=== PATIENT | male | born 1995 | race Caucasian/White ===

== ENCOUNTER 2023-10-23 08:22 | Emergency (ER) | payer SELFPAY ==
[~2023-10-23] VITALS: Ht 185.4 cm; Wt 83.9 kg
[~2023-10-23 08:22] MED LIST: CETI10 PO; MOME.1TC TOP; PENVK250 PO; PREDNISONE; PROM25 PO
[2023-10-23 09:21] VITALS: BP 154/81
[2023-10-23] MEDS ORDERED: Tetracaine HCl/Pf 0.5% Opth Soln 4 ml RIGHTEYE ONE (09:25)
[2023-10-23] MEDS ORDERED: Fluorescein Sod 1MG Opth Strips RIGHTEYE ONE (09:25)
[2023-10-23] MEDS ORDERED: ERYT.5TO RIGHTEYE (10:20)
== END 2023-10-23 10:30 | disposition home or self-care (01) ==
LOC: ER 08:22
DX: T15.01XA Foreign body in cornea, right eye, initial encounter (principal); W44.F9XA Other object of natural or organic material, entering into or through a natural orifice, initial encounter
CPT/HCPCS: 99283; A9270

== ENCOUNTER 2025-02-10 01:46 | Emergency (ER) | payer OTHER ==
[~2025-02-10] VITALS: Ht 185.4 cm; Wt 84.8 kg
[~2025-02-10 01:46] MED LIST changes: +ERYT.5TO RIGHTEYE
[2025-02-10 02:27] LABS: Alanine Aminotransfer (ALT/SGP 29.0 U/L (12-78); Albumin, Blood 4.5 g/dL (3.4-5.0); Albumin/Globulin Ratio 1.3 (0.8-1.8); Anion Gap 8.0 mmol/L (3-11); Aspartate Aminotrans (AST/SGOT 47.0 U/L (12-37); Bilirubin, Total 0.3 mg/dL (0.1-1.0); Blood Urea Nitrogen 11.0 mg/dL (8-24); CO2, Blood 27.0 mmol/L (21-32); Calcium, Blood 9.1 mg/dL (8.5-10.1); Chloride, Blood 109.0 mmol/L (98-108); Creatinine, Blood 0.94 mg/dL (0.60-1.20); Globulin, Blood 3.5 g/dL (2.2-4.0); Glucose, Blood 108.0 mg/dL (70-99); Magnesium, Blood 2.7 mg/dL (1.6-2.4); Potassium, Blood 3.7 mmol/L (3.5-5.5); Sodium, Blood 140.0 mmol/L (136-145); Total Protein, Blood 8.0 g/dL (6.4-8.2)
[2025-02-10 02:29] VITALS: BP 137/94
[2025-02-10 02:30] LABS: Prothrombin Time Results 11.1 Sec (9.7-11.5)
[2025-02-10 02:32] LABS: BASOPHILS ABSOLUTE AUTO 0.07 K/mm3 (0.00-0.23); BASOPHILS PERCENT AUTO 1 % (0-2); EOSINOPHILS ABSOLUTE AUTO 0.19 K/mm3 (0.00-0.68); EOSINOPHILS PERCENT AUTO 2 % (0-6); Hematocrit 43.9 % (37.0-53.0); Hemoglobin 15.1 g/dL (13.5-17.5); IMMATURE GRAN ABSOLUTE AUTO 0.06 K/mm3 (0.00-0.10); IMMATURE GRAN PERCENT AUTO 1 % (0-1); LYMPHOCYTES ABSOLUTE AUTO 2.47 K/mm3 (0.84-5.20); LYMPHOCYTES PERCENT AUTO 31 % (21-46); MONOCYTES ABSOLUTE AUTO 0.68 K/mm3 (0.16-1.47); MONOCYTES PERCENT AUTO 9 % (4-13); Mean Corpuscular HGB Conc 34.4 g/dL (31.5-36.5); Mean Corpuscular Volume 90 fL (80-100); NEUTROPHILS ABSOLUTE AUTO 4.43 K/mm3 (1.96-9.15); NEUTROPHILS PERCENT AUTO 56 % (41-73); NRBC ABSOLUTE 0.00 K/mm3 (0.00-0.02); NRBC Auto 0.0 /100 WBC (0.0-0.2); Platelet Count 361 K/mm3 (150-400); RDW Coefficient Variation 12.6 % (11.7-14.2); RDW Standard Deviation 41.5 fL (35.1-46.3)
[2025-02-10 06:36] LABS: Source, Urine Clean Catch
[2025-02-10 06:41] LABS: Bilirubin, Urine Neg (Neg); Glucose Qualitative, Urine Neg (Neg); Ketones, Urine Neg (Neg); Leukocyte Esterase, Urine Neg (Neg); Protein, Urine 1+ (Neg); Specific Gravity, Urine 1.010 (1.003-1.022); Urobilinogen, Urine NORM (Normal)
[2025-02-10] MEDS ORDERED: Ketorolac Tromethamine 15mg Vial IV ONE (06:45)
[2025-02-10 06:46] LABS: Color, Urine Pale Yellow (P-Yellow)
[2025-02-10 06:49] LABS: Red Blood Cells, Urine 0-2 /hpf (0-2); White Blood Cells, Urine 0-2 /hpf (0-5)
[2025-02-10] MEDS ORDERED: LIDO700A20 TOP (07:26)
[2025-02-10] MEDS ORDERED: Robaxin750 MG PO (07:26)
== END 2025-02-10 08:43 | disposition home or self-care (01) ==
LOC: ER 01:46
PROVIDERS: Student in an Organized Health Care Education/Training Program
DX: S27.0XXA Traumatic pneumothorax, initial encounter (principal); S22.31XA Fracture of one rib, right side, initial encounter for closed fracture; S43.51XA Sprain of right acromioclavicular joint, initial encounter; V49.9XXA Car occupant (driver) (passenger) injured in unspecified traffic accident, initial encounter
CPT/HCPCS: 70450; 71045; 71260; 72125; 73030; 74177; 80053; 81001; 83735; 85025; 85610; 85730; 86850; 86900; 86901; 96374-59; 99285-25; A9270; J1885; Q9967